=== PATIENT | female | born 1990 | race Asian ===

== ENCOUNTER 2020-05-24 10:13 | Inpatient (IN) | payer OTHER ==
[~2020-05-24] VITALS: Ht 157.5 cm; Wt 62.0 kg
[2020-05-24] MEDS ORDERED: ALUMINUM/MAG/SIMETHICONE 30 ML UDC PO PRN (11:30)
[2020-05-24] MEDS ORDERED: TERBUTALINE 1 MG/ML, 1ML SQ PRN (11:30)
[2020-05-24] MEDS ORDERED: FENTANYL PF 100 MCG/2ML IVPush PRN (11:30)
[2020-05-24] MEDS ORDERED: ONDANSETRON 2MG/ML, 2ML IVPush PRN ×2 (11:30→18:00)
[2020-05-24] MEDS ORDERED: SODIUM CHLORIDE FLUSH 10ML SYR IVF PRN (11:30)
[2020-05-24] MEDS ORDERED: SODIUM CITRATE/CITRIC ACID 30 ML UDC PO PRN (11:30)
[2020-05-24] MEDS ORDERED: CALCIUM CARBONATE 500 MG TAB.CHEW PO PRN (11:30)
[2020-05-24] MEDS ORDERED: OXYTOCIN 30U/ 0.9% NaCL 500ML 500 ML IV ONE (11:30)
[2020-05-24] MEDS ORDERED: METOCLOPRAMIDE 5 MG/ML, 2ML IVPush PRN (11:30)
[2020-05-24] MEDS: D5%-LACTATED RINGERS 1,000 ML IV SCH ×2 (11:30→19:30)
[2020-05-24] MEDS ORDERED: TERBUTALINE 1 MG/ML, 1ML IVPush PRN (11:30)
[2020-05-24] MEDS ORDERED: OXYTOCIN 30U/ 0.9% NaCL 500ML 500 ML IV PRN (11:30)
[2020-05-24] MEDS: LACTATED RINGERS 1,000 ML IV SCH ×3 (11:45→17:58)
[2020-05-24 11:59] LABS: BASOPHILS % (AUTO) 0 % (0-1); EOSINOPHILS % (AUTO) 3 % (1-7); LYMPHOCYTES % (AUTO) 15 % (22-44); MEAN CORPUSCULAR HEMOGLOBIN 30.5 pg (27.0-34.8); MEAN CORPUSCULAR HGB CONC 34.5 g/dL (32.4-35.8); MEAN PLATELET VOLUME 6.3 fL (7.4-10.4); MONOCYTES % (AUTO) 8 % (2-9); NEUTROPHILS % (AUTO) 74 % (42-75); PLATELET COUNT 347 x10^3/uL (130-400); RED BLOOD COUNT 3.86 x10^6/uL (3.82-5.3); RED CELL DISTRIBUTION WIDTH 14.1 % (9.6-15.2)
[2020-05-24 12:04] LABS: MD NO
[2020-05-24] MEDS ORDERED: NEWBORN KIT ONE (12:05)
[2020-05-24] MEDS ORDERED: MISOPROSTOL 200 MCG TABLET ONE (12:05)
[2020-05-24] MEDS ORDERED: LIDOCAINE 1%, 20ML ONE (12:05)
[2020-05-24 12:45] LABS: MICROSCOPIC INDICATED
[2020-05-24] MEDS ORDERED: PREN-1 PO (15:17)
[2020-05-24] MEDS ORDERED: BUPIVACAINE 0.25% ONE (17:22)
[2020-05-24] MEDS ORDERED: FENTANYL/BUPIV./NS/PF 250 ML EPIDCONT ONE (17:22)
[2020-05-24] MEDS ORDERED: DIPHENHYDRAMINE 50 MG/ML, 1ML IVPush PRN (18:00)
[2020-05-24] MEDS: FENTANYL/BUPIV./NS/PF 250 ML EPIDCONT SCH (18:00)
[2020-05-24] MEDS ORDERED: EPHEDRINE 50 MG/ML, 1ML IVPush PRN (18:00)
[2020-05-24] MEDS ORDERED: NALOXONE 0.4 MG/ML, 1ML IVPush PRN (18:00)
[2020-05-24] MEDS ORDERED: LACTATED RINGERS 1,000 ML IVBOLUS PRN (18:30)
[2020-05-25] MEDS: LACTATED RINGERS 1,000 ML IV SCH ×5 (02:00→15:30)
[2020-05-25] MEDS ORDERED: ACETAMINOPHEN 500 MG TABLET PO ONE (03:00)
[2020-05-25] MEDS ORDERED: GENTAMICIN PER PHARMACY MC PRN (03:00)
[2020-05-25] MEDS ORDERED: ACETAMINOPHEN 500 MG TABLET ONE (03:02)
[2020-05-25] MEDS: AMPICILLIN 2 GM in SODIUM CHLORIDE 0.9% 100 ML IV SCH ×4 (03:04→20:48)
[2020-05-25] MEDS ORDERED: SODIUM CITRATE/CITRIC ACID 15 ML UDC ONE (03:06)
[2020-05-25] MEDS ORDERED: SODIUM CITRATE/CITRIC ACID 30 ML UDC PO ONE (03:30)
[2020-05-25] MEDS ORDERED: AZITHROMYCIN 500 MG in SODIUM CHLORIDE 0.9% 250 ML IV ONE (03:30)
[2020-05-25] MEDS ORDERED: PHARMACOKINETIC MONITORING MC PRN (03:30)
[2020-05-25] MEDS: D5%-LACTATED RINGERS 1,000 ML IV SCH ×2 (03:30→11:30)
[2020-05-25] MEDS ORDERED: METOCLOPRAMIDE 5 MG/ML, 2ML IVPush ONE (03:30)
[2020-05-25] MEDS ORDERED: LIDOCAINE/MPF 2%-EPI 1:200K, 20 ML ONE (04:10)
[2020-05-25] MEDS ORDERED: morphine SULFATE/PF 0.5 MG/ML, 10ML ONE (04:24)
[2020-05-25] MEDS ORDERED: WATER-INJECTION,STERILE 10 ML IV ONE (04:26)
[2020-05-25] MEDS ORDERED: ONDANSETRON 2MG/ML, 2ML ONE (04:26)
[2020-05-25] MEDS ORDERED: KETOROLAC 30 MG/1 ML ONE (04:26)
[2020-05-25] MEDS ORDERED: DEXAMETHASONE 4 MG/ML, 1ML ONE (04:26)
[2020-05-25] MEDS ORDERED: CEFAZOLIN 1,000 MG ONE (04:26)
[2020-05-25] MEDS ORDERED: OXYTOCIN 10 UNITS/ML, 1ML ONE (04:26)
[2020-05-25] MEDS ORDERED: ONDANSETRON 2MG/ML, 2ML IV PRN (05:30)
[2020-05-25] MEDS ORDERED: MORPHINE SULFATE 4 MG/ML, 1ML IVPush PRN (05:30)
[2020-05-25] MEDS ORDERED: SIMETHICONE 80 MG CHEW TAB PO PRN (05:30)
[2020-05-25] MEDS ORDERED: morphine SULFATE 10 MG/ML, 1ML IVPush PRN (05:30)
[2020-05-25] MEDS ORDERED: METOCLOPRAMIDE 5 MG/ML, 2ML IV PRN (05:30)
[2020-05-25] MEDS ORDERED: IBUPROFEN 800 MG TABLET PO PRN (05:30)
[2020-05-25] MEDS ORDERED: BISACODYL 10 MG SUPP PR PRN (05:30)
[2020-05-25] MEDS ORDERED: MISOPROSTOL 200 MCG TABLET PO PRN (05:30)
[2020-05-25] MEDS ORDERED: ACETAMINOPHEN 325 MG TABLET PO PRN (05:30)
[2020-05-25] MEDS ORDERED: GLYCERIN ADULT SUPP PR PRN (05:30)
[2020-05-25] MEDS ORDERED: TRANEXAMIC ACID 1,000 MG in SODIUM CHLORIDE 0.9% 100 ML IVPB ONE (05:30)
[2020-05-25] MEDS ORDERED: CARBOPROST TROMETHAMINE 250 MCG/ML, 1ML IM PRN (05:30)
[2020-05-25] MEDS ORDERED: METHYLERGONOVINE 0.2 MG/ML IM PRN (05:30)
[2020-05-25] MEDS ORDERED: OXYcodone IR 5MG TABLET PO PRN (05:30)
[2020-05-25] MEDS: OXYTOCIN 30U/ 0.9% NaCL 500ML 500 ML IV SCH ×2 (05:30→15:30)
[2020-05-25] MEDS: GENTAMICIN 100 MG in SODIUM CHLORIDE 0.9% 50 ML IV SCH ×3 (06:59→22:44)
[2020-05-25 07:45] VITALS: BP 109/66
[2020-05-25] MEDS: PRENATAL VIT/IRON/FA 1 EACH TABLET PO SCH (09:00)
[2020-05-25] MEDS: KETOROLAC 30 MG/1 ML IV SCH ×3 (11:52→23:41)
[2020-05-25 12:00] VITALS: BP 98/60
[2020-05-25 12:24] LABS: BASOPHILS % (AUTO) 0 % (0-1); EOSINOPHILS % (AUTO) 0 % (1-7); LYMPHOCYTES % (AUTO) 6 % (22-44); MEAN CORPUSCULAR HEMOGLOBIN 29.8 pg (27.0-34.8); MEAN CORPUSCULAR HGB CONC 33.6 g/dL (32.4-35.8); MEAN PLATELET VOLUME 6.4 fL (7.4-10.4); MONOCYTES % (AUTO) 3 % (2-9); NEUTROPHILS % (AUTO) 91 % (42-75); PLATELET COUNT 310 x10^3/uL (130-400); RED BLOOD COUNT 3.64 x10^6/uL (3.82-5.3); RED CELL DISTRIBUTION WIDTH 13.7 % (9.6-15.2)
[2020-05-25 12:25] LABS: MD NO
[2020-05-25 16:00] VITALS: BP 110/66
[2020-05-25] MEDS: FENTANYL/BUPIV./NS/PF 250 ML EPIDCONT SCH (18:00)
[2020-05-25 19:05] VITALS: BP 88/51
[2020-05-25] MEDS: DOCUSATE 100 MG CAPSULE PO PRN (20:49)
[2020-05-25 23:16] VITALS: BP 105/66
[2020-05-26] MEDS: AMPICILLIN 2 GM in SODIUM CHLORIDE 0.9% 100 ML IV SCH (02:50)
[2020-05-26] MEDS: KETOROLAC 30 MG/1 ML IV SCH ×3 (05:42→19:28)
[2020-05-26] MEDS: GENTAMICIN 100 MG in SODIUM CHLORIDE 0.9% 50 ML IV SCH (06:45)
[2020-05-26 08:10] VITALS: BP 107/71
[2020-05-26] MEDS: DOCUSATE 100 MG CAPSULE PO PRN (08:19)
[2020-05-26] MEDS: PRENATAL VIT/IRON/FA 1 EACH TABLET PO SCH (08:19)
[2020-05-26 19:50] VITALS: BP 115/71
[2020-05-27] MEDS: KETOROLAC 30 MG/1 ML IV SCH ×2 (01:41→07:30)
[2020-05-27] MEDS: OXYcodone/APAP 5/325MG TABLET PO PRN ×2 (05:59→13:18)
[2020-05-27 07:40] VITALS: BP 119/79
[2020-05-27] MEDS: IBUPROFEN 600 MG TABLET PO PRN ×2 (08:04→13:18)
[2020-05-27] MEDS: DOCUSATE 100 MG CAPSULE PO PRN (08:04)
[2020-05-27] MEDS: PRENATAL VIT/IRON/FA 1 EACH TABLET PO SCH (08:13)
[2020-05-27] MEDS ORDERED: OXYC1TAB14 PO (10:56)
[2020-05-27] MEDS ORDERED: IBUP-1222 PO (10:56)
== END 2020-05-27 14:05 | disposition home or self-care (01) | DRG 786 ==
LOC: LDOP 10:13 → LDIP 11:28 → 2NW 05-25 07:25
PROVIDERS: ADMIT Student in an Organized Health Care Education/Training Program; ATTEND Student in an Organized Health Care Education/Training Program
PROC: 10D00Z1 Extraction of Products of Conception, Low, Open Approach (ICD-10-PCS; principal; 2020-05-25)
DX: O34.13 Maternal care for benign tumor of corpus uteri, third trimester (principal); O41.1230 Chorioamnionitis, third trimester, not applicable or unspecified; Z3A.37 37 weeks gestation of pregnancy; Z37.0 Single live birth; D25.9 Leiomyoma of uterus, unspecified; Z20.822 Contact with and (suspected) exposure to COVID-19; O62.1 Secondary uterine inertia
CPT/HCPCS: 36415; 81001; 84112; 85025; 86592; 86850; 86900; 87635; G0378; J0290; J0690; J1100; J1885; J2274; J2405; J3010; J1580; J2590; J2765; J7120